=== PATIENT | male | born 1965 | race Hispanic/Latino ===

== ENCOUNTER → 2022-04-17 | Outpatient (CLI) | payer OTHER ==
[~2022-04-17] MED LIST: AMIO200T44 PO; ASPI-1443 PO; ATOR40TA71 PO; CLOP75TA14 PO; FURO20TA6 PO; METO-391 PO
== END | disposition home or self-care (01) ==
LOC: RAH 10:02
PROVIDERS: ATTEND Internal Medicine Cardiovascular Disease
DX: J90 Pleural effusion, not elsewhere classified (principal); Z95.1 Presence of aortocoronary bypass graft
CPT/HCPCS: 71046